=== PATIENT | female | born 1990 | race Caucasian/White ===

== ENCOUNTER 2018-12-03 10:03 | Emergency (ER) | payer BC ==
[~2018-12-03] VITALS: Ht 170.2 cm; Wt 93.1 kg
[~2018-12-03 10:03] MED LIST: PROZAC 20MG20 MG PO
[2018-12-03 10:06] VITALS: BP 138/87; TEMP 98.4
[2018-12-03] MEDS ORDERED: PRILOSEC 20MG20 MG PO (10:10)
[2018-12-03] MEDS ORDERED: PROAIR HFA0.09 MG/AC IH (11:05)
[2018-12-03] MEDS ORDERED: PREDNISONE20 MG PO (11:05)
[2018-12-03] MEDS ORDERED: ZITHROMAX Z PA250 MG PO (11:05)
[2018-12-03 11:13] VITALS: PULSE 93
== END 2018-12-03 11:13 | disposition home or self-care (01) ==
LOC: COL.ER 10:03
DX: J20.9 Acute bronchitis, unspecified (principal); G43.909 Migraine, unspecified, not intractable, without status migrainosus; Z90.89 Acquired absence of other organs; Z90.49 Acquired absence of other specified parts of digestive tract; F17.210 Nicotine dependence, cigarettes, uncomplicated